=== PATIENT | male | born 1995 | race Caucasian/White ===

== ENCOUNTER 2017-09-14 01:59 | Emergency (ER) | payer OTHER ==
[~2017-09-14] VITALS: Ht 182.9 cm; Wt 73.9 kg
[2017-09-14 02:09] VITALS: Ht 182.9 cm; Wt 73.9 kg
[2017-09-14 03:20] LABS: BASOPHIL % 0.6 % (0-2); PLATELET COUNT 198 x10^3mcL (130-400); RED CELL DISTRIBUTION WIDTH 12.9 % (11.5-14.5)
[2017-09-14 03:26] LABS: CALCIUM 9.6 mg/dL (8.5-10.1); CARBON DIOXIDE 29.3 mmol/L (21-32); CHLORIDE SERUM 102 mmol/L (98-107); CREATININE SERUM 0.8 mg/dL (0.7-1.3); GFR1 > 60 mL/min; GLUCOSE SERUM 135 mg/dL (74-106); POTASSIUM SERUM 3.6 mmol/L (3.5-5.1); SODIUM SERUM 141 mmol/L (136-145)
[2017-09-14 05:19] VITALS: BP 130/76
== END 2017-09-14 05:19 | disposition home or self-care (01) ==
LOC: ED 01:59
PROVIDERS: Emergency Medicine
DX: R07.89 Other chest pain (principal); R09.1 Pleurisy; J45.909 Unspecified asthma, uncomplicated
CPT/HCPCS: J1885; J7030; Q0092; Q9967

== ENCOUNTER 2018-02-17 20:46 | Emergency (ER) | payer OTHER ==
[~2018-02-17] VITALS: Ht 185.4 cm; Wt 69.4 kg
[2018-02-17 20:54] VITALS: Ht 185.4 cm; Wt 69.4 kg
[2018-02-17 22:35] VITALS: BP 136/84
== END 2018-02-17 23:03 | disposition home or self-care (01) ==
LOC: ED 20:46
DX: R51 Headache (principal); R42 Dizziness and giddiness; Z87.81 Personal history of (healed) traumatic fracture; J45.909 Unspecified asthma, uncomplicated
CPT/HCPCS: J8597